=== PATIENT | male | born 1950 | race Caucasian/White ===

== ENCOUNTER → 2018-11-07 | Day surgery (SDC) | payer MEDICARE ==
[~2018-11-07] MED LIST: Lactated Ringers 1,000 ML IV SCH; Propofol 200 MG/20 ML SDV IV ONE
--- NOTE | 2018-11-07 13:38 | OR ---
DATE OF OPERATION: 11/07/2018 PREOPERATIVE DIAGNOSIS: SCREENING COLONOSCOPY. POSTOPERATIVE DIAGNOSIS: SCREENING COLONOSCOPY. SURGEON: Jose R Phillip MD PROCEDURE: FULL-LENGTH COLONOSCOPY. ANESTHESIA: MAC via DRY FINISHER. COMPLICATIONS: None. SPECIMEN: None. FINDINGS: 1. Full-length colonoscopy. 2. Minimal diverticulosis. RECOMMENDATIONS: Followup colonoscopy every 10 years. INDICATIONS: The patient was seen for routine physical. He was due for a routine screening colonoscopy. DESCRIPTION OF PROCEDURE: The patient was prepped and draped, placed in the left lateral decubitus position. A lubricated Olympus colonoscope was inserted and easily advanced to the cecum. Direct visualization of the ileocecal valve and appendiceal orifice was accomplished. The bowel prep was excellent. Upon withdrawal of the scope, throughout the entire length of the colon, I could find no signs of any polyps, mass, ulceration, or bleeding sites. No vascular abnormalities or signs of colitis. The patient had very minimal signs of diverticular disease, 1 or 2 scattered on the right and a few in the sigmoid, but very minimal. No inflammatory change is seen. The rectal vault was benign. Retroflexion of scope in the rectum showed no perianal lesions. Air was suctioned, scope removed without complication. CAROL/ROBERTA /[id number]
== END ==
LOC: CC.SDS 07:41
PROVIDERS: ATTEND Family Medicine
DX: Z12.11 Encounter for screening for malignant neoplasm of colon (principal); K57.30 Diverticulosis of large intestine without perforation or abscess without bleeding; Z80.0 Family history of malignant neoplasm of digestive organs; E78.5 Hyperlipidemia, unspecified; G43.909 Migraine, unspecified, not intractable, without status migrainosus; G47.61 Periodic limb movement disorder; R53.83 Other fatigue; N40.1 Benign prostatic hyperplasia with lower urinary tract symptoms; R39.11 Hesitancy of micturition; T63.441A Toxic effect of venom of bees, accidental (unintentional), initial encounter; M54.9 Dorsalgia, unspecified; G89.29 Other chronic pain; Z87.891 Personal history of nicotine dependence; Z79.899 Other long term (current) drug therapy; Z88.0 Allergy status to penicillin
CPT/HCPCS: J2704; J7120